=== PATIENT | male | born 1970 | race Caucasian/White ===

== ENCOUNTER 2017-01-11 08:15 | Inpatient (IN) | payer BC ==
[2017-01-11] MEDS: ATORVASTATIN CALCIUM 40 MG TAB PO SCH (20:05)
[2017-01-12 07:52] LABS: % IMMATURE GRANULYOCYTES 0.5 % (0.0-1.1); ABSOLUTE IMMATURE GRANULOCYTES 0.04 10^3/uL (0.00-0.10); ADD DIFF? NO; ADD MORPH? NO; ADD SCAN? NO; ATYPICAL LYMPHOCYTE FLAG 30 (0-99); FRAGMENT RBC FLAG 0 (0-99); HEMATOCRIT 39.3 % (40.0-51.0); LEFT SHIFT FLG 0 (0-99); LIPEMIA HEMOLYSIS FLAG 90 (0-99); MEAN CELL HEMOGLOBIN 33.1 pg (27.9-34.1); MEAN CELL HEMOGLOBIN CONCENTR. 35.6 g/dL (32.4-36.7); MEAN CELL VOLUME 92.9 fL (81.5-99.8); PLATELET CLUMPS FLAG 30 (0-99); PLATELET COUNT 350 10^3/uL (150-400); RED BLOOD CELL COUNT 4.23 10^6/uL (4.40-6.38); RED CELL DISTRIBUTION WIDTH 12.6 % (11.5-15.2)
[2017-01-12 08:16] LABS: ALANINE AMINOTRANSFERASE 119 IU/L (21-72); ALBUMIN 3.6 g/dL (3.5-5.0); ALKALINE PHOSPHATASE 70 IU/L (38-126); ANION GAP 11 mEq/L (8-16); ASPARTATE AMINOTRANSFERASE 56 IU/L (17-59); BILIRUBIN,TOTAL 1.1 mg/dL (0.1-1.4); CALCIUM 9.1 mg/dL (8.5-10.4); CARBON DIOXIDE 25 mEq/l (22-31); CHLORIDE 105 mEq/L (97-110); CREATININE 0.8 mg/dL (0.7-1.3); GLOMERULAR FILTRATION RATE > 60; GLUCOSE 86 mg/dL (70-100); SODIUM 141 mEq/L (134-144); TOTAL PROTEIN 6.5 g/dL (6.3-8.2)
[2017-01-12] MEDS: METOPROLOL SUCCINATE XR 50 MG TAB PO SCH (08:35)
[2017-01-12] MEDS: CLOPIDOGREL BISULFATE 75 MG TAB PO SCH (08:35)
[2017-01-12] MEDS: LISINOPRIL 10 MG TAB PO SCH (08:35)
[2017-01-12] MEDS: ASPIRIN EC 81 MG TAB PO SCH (08:35)
[2017-01-12] MEDS ORDERED: ACETAMINOPHEN 650 MG/20.3 ML UDCUP PO PRN (11:46)
--- NOTE | 2017-01-12 11:50 | PDOREHIP ---
Admission [facility] - Admission - 3 Day Assessment Period Admission Date/Day 1: 01/11/17 Day 2: 01/12/17 Day 3: 01/13/17 - Active Diagnoses Comorbidities and Co-existing Conditions at Admission: 25602. None of the Above - Skin Conditions Unhealed Pressure Ulcer (1 or more/Stage 1 or >)-Admission: 0. No
[2017-01-12] MEDS ORDERED: ACETAMINOPHEN 325 MG TAB PO PRN (11:58)
--- NOTE | 2017-01-12 12:49 | GHP ---
[f rep st] HISTORY AND PHYSICAL POST ADMISSION PHYSICIAN EVALUATION AND REHABILITATION TREATMENT PLAN DATE OF ADMISSION: 01/11/2017 DATE OF EVALUATION: 01/12/2017 TIME OF EVALUATION: 1115 REFERRING FACILITY: [facility]. REFERRING PHYSICIAN: Dr. Cuevas IMPAIRMENT GROUP: 2.1. DATE OF ONSET: 01/03/2017 CONSULTING PHYSICIAN: He had consultation with logging equipment mechanic, Dr. Seth Lopez. REHABLITATION DIAGNOSIS: Debility, status post cardiac arrest with possible hypoxic ischemic encephalopathy. ETIOLOGIC DIAGNOSIS: Nontraumatic brain dysfunction. HISTORY OF PRESENT ILLNESS: This patient had cardiac arrest at approximately 2 a.m. on 01/03/2017. His awakened, noting abnormal breathing, called 911 and initiated CPR. When paramedics arrived, he was found to be in ventricular fibrillation. He received epinephrine and shocks x3 and returned to normal sinus rhythm. He was intubated immediately upon arrival to the emergency department. EKG did not show ischemia; however, he had elevated troponin. He had eventual cardiac catheterization, which found a complete blockage of the left anterior descending artery and atherosclerotic disease in other arteries as well. The left anterior descending artery was stented. He required an intra -aortic balloon pump, as he was in cardiogenic shock. Initial evaluation showed ejection fraction of 20%, which subsequently improved to 45% as his cardiac function recovered. He required fluids, as well as diuresis. He was extubated after 3 days. He had agitation but ultimately was participating in therapies, medically stabilized and ready for inpatient rehabilitation. STUDIES AND LABS IN THE HOSPITAL: He had elevated hepatic transaminases likely due to cardiogenic shock. Imaging revealed left rib fractures #4 to 7, as well as fatty liver. Otherwise, labs were overall unremarkable. PRECAUTIONS: He is a fall risk. ACTIVE COMORBIDITIES: He has the tier 3 comorbidity of morbid obesity. Otherwise, he has no active tier 1, tier 2, or tier 3 comorbidities. PAST MEDICAL HISTORY: 1. Hypertension. 2. Dyslipidemia. PAST SURGICAL HISTORY: He has had no surgeries. PRE-HOSPITAL MEDICATIONS: He was being treated for hypertension and dyslipidemia; however, he was not consistent with taking medications. ADMISSION MEDICATIONS: 1. Aspirin 81 mg p.o. daily. 2. Atorvastatin 80 mg p.o. at bedtime. 3. Clopidogrel 75 mg p.o. daily. 4. Lisinopril 10 mg p.o. daily. 5. Metoprolol-XL 50 mg p.o. daily. ALLERGIES: There are no known drug allergies. FAMILY HISTORY: There is extensive cardiovascular family history. His father of a heart attack at age 50. His father was also an alcoholic. PSYCHOSOCIAL HISTORY: He is . He lives with his . They have 7 children. 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 He is a nonsmoker. He has a history of regular alcohol consumption, but he has discontinued drinking. REVIEW OF SYSTEMS: He has left thoracic pain when he lies on it. Otherwise, he is not in pain. He denies cough or dyspnea. He has no palpitations or chest pain. He is not aware of neurologic changes, including no vision changes. No headache. No difficulty swallowing. No numbness, weakness, or tingling of the extremities. He reports that he snores at night, but other than the events of January 03, he is not aware that his has noted any abnormal breathing at night. He denies fevers or chills. He has a fair appetite. He denies nausea, vomiting, constipation, or diarrhea. No abdominal pain. He denies dysuria or urinary frequency. He denies joint pain or joint swelling. He denies skin rash or skin breakdown. Otherwise, a 10-point review of systems is negative. PHYSICAL EXAMINATION: VITAL SIGNS: Blood pressure is 116/85, heart rate is 92 , respiratory rate is 17, oxygen saturation is 92% on room air, temperature is 36.6 degrees centigrade. His weight is 122.3 kg for a body mass index of 37.6. GENERAL: This is an obese man, sitting up in a chair, dressed in street clothes, cooperative and in no acute distress. HEENT: Extraocular movements are intact. Pupils are equal, round, and reactive to light. He has bilateral subconjunctival hemorrhage on the lateral aspects of each eye. Mucous membranes are moist. Dentition is in good condition. There is no posterior oropharyngeal mucus. There are no oropharyngeal mucosal abnormalities. He has a mildly crowded airway, Mallampati class 2. NECK: Supple. HEART: There is a regular rate and rhythm with no murmurs, rubs, or gallops. LUNGS: Clear to auscultation bilaterally. ABDOMEN: Soft, nontender, nondistended with normoactive bowel sounds and no hepatosplenomegaly. EXTREMITIES: There is no cyanosis, clubbing, or edema. Radial and dorsalis pedis pulses are 2+ bilaterally. NEUROLOGIC: He is alert and oriented x3. Cranial nerves 2-12 are grossly intact. There is no focal weakness. Sensation is intact to light touch. Deep tendon reflexes are 2+ bilaterally at the biceps, patella, and Achilles tendons. Plantar reflex is mildly upgoing bilaterally. CURRENT LEVEL OF FUNCTION PER THE PRE-ADMISSION SCREEN: regarding diet, feeding , and swallowing, he was on a regular texture diet with thin liquids. Toileting required contact guard to minimal assist. Bed mobility required minimal to moderate assist. Transfers required contact guard to minimal assist. He used a front-wheeled walker. Balance, seated required standby assistance. Standing required contact guard within his base of support, and minimal assist when he was outside of his base of support. He had delayed balance reactions. His endurance was poor to fair. Regarding gait, he pushed the wheelchair with 3 L of oxygen but with no other assistive device. He had a wide base of support, decreased stride length, and required minimal assist for 15 feet. His righting reactions and balance deteriorated with dual tasks or distractions. Regarding communication, he was noted to have garbled speech, but this has improved. Regarding cognition, he was noted to have impaired attention, memory, executive function and problem solving. IMPRESSION: This patient is a 46-year-old man with a significant family history of coronary artery disease, as well as dyslipidemia, hypertension and poor compliance with medications. He suffered a ventricular fibrillation cardiac arrest on 01/03/2017. He received CPR at home, and then he was shocked in the field with return of spontaneous circulation. He was intubated for approximately 3 days and required an intra-aortic balloon pump. Cardiac catheterization revealed a left anterior descending 100% occlusion, which was stented, as well as atherosclerosis in other vessels. He had cardiogenic shock initially but has recovered cardiac function to an ejection fraction of 45%. He was treated with heparin initially and then started on aspirin and atorvastatin. He was treated with lisinopril and metoprolol for hypertension, as well as congestive heart failure and he received diuresis in the hospital. He denies a prior diagnosis of sleep apnea but has a CPAP machine which was given to him at the hospital and has been brought to inpatient rehabilitation for him to continue. He has deficits to mobility and activities of daily living and had documented cognitive impairment at the hospital. He is appropriate for inpatient rehabilitation where he will benefit from PT and OT to optimize mobility and activities of daily living, as well as speech and language pathology for assessment and treatment of cognitive function. He needs nursing care for medication administration, bowel and bladder, fall risk, skin integrity, and medication education. He needs the care of a physician for blood pressure and cardiorespiratory status. His goal is to complete a rehabilitation stay and then return home with his family and home health care, as well as any durable medical equipment that he might require. For a safe discharge, it is anticipated that he will achieve modified independence to independence with ADLs and functional activities. It is likely he will require assistance for household management and shopping, and he may need 24 hour supervision pending progress with cognitive impairments. He will have therapy with physical therapy, occupational therapy, and speech and language pathology for 60 minutes per day for each discipline on 5-7 days of the week. His expected duration of stay is 7-10 days. It is anticipated that upon discharge, he will continue to benefit from home health services including speech and language pathology, occupational therapy, physical therapy, and possibly a brain injury support group. PLAN: 1. Hypoxic ischemic encephalopathy. He appears to have had improvement since this was first noted in the hospital. Assessment and treatment per Speech and Language Pathology. 2. Deficits to mobility and activities of daily living to be assessed and treated per Physical Therapy and Occupational Therapy. 3. Coronary artery disease, status post VFib arrest, myocardial infarction and stenting of a 100% LAD lesion. Continue aspirin, as well as clopidogrel. Continue management of hypertension with lisinopril and metoprolol. Continue management of dyslipidemia with atorvastatin. 4. Steatohepatitis and obesity. He will have a consult with the dietitian. 5. Congestive heart failure with reduced ejection fraction. He may benefit from cardiac rehabilitation once he completes his functional and cognitive rehabilitation. 6. Rib pain. Will prescribe acetaminophen on an as-needed basis. 7. Question of obstructive sleep apnea. He has been provided a CPAP machine from the hospital. He is advised to have a formal sleep study done after discharge from inpatient rehabilitation. 8. Conjunctival hemorrhage, likely due to anticoagulation, as well as CPR. Observe for resolution. Consider referral to Ophthalmology after discharge. 9. Prophylaxis. Other than obesity and recent hospitalization, he is not at elevated risk for DVT. He is on dual anti-platelet therapy. Continue SCDs at night. Assess for mobility. If his mobility is adequate, we will not prescribe any further anticoagulation. /[id number]/MODL MTDD
[2017-01-12] MEDS: ATORVASTATIN CALCIUM 40 MG TAB PO SCH (20:04)
[2017-01-13] MEDS: ASPIRIN EC 81 MG TAB PO SCH (09:53)
[2017-01-13] MEDS: LISINOPRIL 10 MG TAB PO SCH (09:53)
[2017-01-13] MEDS: CLOPIDOGREL BISULFATE 75 MG TAB PO SCH (09:53)
[2017-01-13] MEDS: METOPROLOL SUCCINATE XR 50 MG TAB PO SCH (09:54)
--- NOTE | 2017-01-13 12:39 | SOAPPROG ---
SOAP Progress Note Assessment/Plan: Assessment: 1. Hypoxic ischemic encephalopathy. He appears to have had improvement since this was first noted in the hospital. Speech and Language Pathology, has moderate deficits to memory, attention, executive functions, and problem solving skills. 2. Deficits to mobility and activities of daily living, per Physical Therapy and Occupational Therapy, have largely resolved. Lezama balance inventory 54/56.. 3. Coronary artery disease, status post VFib arrest, myocardial infarction and stenting of a 100% LAD lesion. Continue aspirin, as well as clopidogrel. Continue management of hypertension with lisinopril and metoprolol. Continue management of dyslipidemia with atorvastatin. 4. Steatohepatitis and obesity. He will have a consult with the dietitian. 5. Congestive heart failure with reduced ejection fraction. Plan for cardiac rehabilitation once he completes his functional and cognitive rehabilitation. 6. Rib pain. Will prescribe acetaminophen on an as-needed basis. 7. Question of obstructive sleep apnea. He has been provided a CPAP machine from the hospital. He is advised to have a formal sleep study done after discharge from inpatient rehabilitation. Will do overnight oximetry tonight 01/13/2017. 8. Conjunctival hemorrhage, likely due to anticoagulation, as well as CPR. Observe for resolution. Consider referral to Ophthalmology after discharge. 9. Prophylaxis. Other than obesity and recent hospitalization, he is not at elevated risk for DVT. He is on dual anti-platelet therapy. Adequate mobility ; no need for pharmacologic anticoagulation. Continue SCDs at night. 01/13/17 12:36 Objective: Vital Signs Temp Pulse Resp BP Pulse Ox 36.6 C 117 H 14 115/73 93 01/13/17 07:42 01/13/17 10:29 01/13/17 07:42 01/13/17 09:54 01/13/17 10:29 Laboratory Results 01/12/17 06:25 01/12/17 06:25 01/12/17 01/13/17 01/14/17 05:59 05:59 05:59 Intake Total 450 440 120 Output Total 0 Balance 450 440 120 Physical Exam - Physical Exam General Appearance: WD/WN, alert, no apparent distress, obese Respiratory: normal breath sounds, No crackles, No rhonchi, No wheezing Cardiac/Chest: regular rate, rhythm, edema (2+ B pretibial) Skin: normal color, warm/dry Neuro/Psych: no motor/sensory deficits, alert, normal mood/affect, oriented x 3 ICD10 Worksheet Patient Problems: Problems Problem Status Onset Hypoxic ischemic encephalopathy Acute
[2017-01-13 18:42] VITALS: RESP 16
[2017-01-13] MEDS: ATORVASTATIN CALCIUM 40 MG TAB PO SCH (21:08)
[2017-01-14] MEDS: LISINOPRIL 10 MG TAB PO SCH (08:43)
[2017-01-14] MEDS: ASPIRIN EC 81 MG TAB PO SCH (08:43)
[2017-01-14] MEDS: METOPROLOL SUCCINATE XR 50 MG TAB PO SCH (08:43)
[2017-01-14] MEDS: CLOPIDOGREL BISULFATE 75 MG TAB PO SCH (08:43)
[2017-01-14 08:45] VITALS: BP 112/75; PULSE 85
[2017-01-14 08:46] VITALS: TEMP 98.9; O2SAT 93
--- NOTE | 2017-01-14 13:46 | SOAPPROG ---
SOAP Progress Note Assessment/Plan: Assessment: # Hypoxic ischemic encephalopathy. He appears to have had improvement since this was first noted in the hospital. * Has moderate deficits to memory, attention, executive functions, and problem solving skills. * Unlikely to be able to return to work soon. # Deficits to mobility and activities of daily living * Lezama balance inventory 54/56. * Has met all goals per PT and OT. # Coronary artery disease, status post VFib arrest, myocardial infarction and stenting of a 100% LAD lesion. Continue aspirin, as well as clopidogrel. Continue management of hypertension with lisinopril and metoprolol. Continue management of dyslipidemia with atorvastatin. # Steatohepatitis and obesity. Has had consult with the dietitian, who reports that he had or D lost some weight by abstaining from sweets prior to his myocardial infarction. #Congestive heart failure with reduced ejection fraction. Plan for cardiac rehabilitation once he completes his functional and cognitive rehabilitation. # Rib pain. Likely due to chest compressions. Has not been using acetaminophen. # Question of obstructive sleep apnea. * He has been provided a CPAP machine from the hospital. * Overnight oximetry 01/13/2017-01/14/2017 showed oxygenation less than 85% 434 min with over 500 episodes. This was done without CPAP. * He is advised to have a formal sleep study done after discharge from inpatient rehabilitation. # Conjunctival hemorrhage, likely due to anticoagulation, as well as CPR. Observe for resolution. Consider referral to Ophthalmology after discharge. # Prophylaxis. Other than obesity and recent hospitalization, he is not at elevated risk for DVT. He is on dual anti-platelet therapy. Adequate mobility ; no need for pharmacologic anticoagulation. Continue SCDs at night. Attended staffing, 15 min. Discussed with case management, dietitian, nursing, PT, OT, TONSORIAL ARTIST. Had neurologic education with case reviewer and TONSORIAL ARTIST. Plan for discharge home today with assistance by . He will have outpatient TONSORIAL ARTIST beginning 01/24/2017. He will have outpatient OT regarding decision to return to work. He is advised to have a pre driving screen pr OT prior to driving. He is advised to have a sleep study for definitive diagnosis of nocturnal hypoxemia. He will be discharged with nocturnal oxygen ordered to be used concurrent with CPAP until he has a sleep study. 01/14/17 13:38 Subjective: No complaints this morning. Slept well. Not in pain. No cough or dyspnea. Objective: Vital Signs Temp Pulse Resp BP Pulse Ox 37.2 C 85 16 112/75 93 01/14/17 08:00 01/14/17 08:43 01/14/17 08:00 01/14/17 08:43 01/14/17 08:00 Laboratory Results 01/12/17 06:25 01/12/17 06:25 01/13/17 01/14/17 01/15/17 05:59 05:59 05:59 Intake Total 440 420 240 Balance 440 420 240 - Time Spent With Patient Time Spent With Patient: Greater than 35 min floor time today, including more than 50% of time in coordination of care during staffing meeting, and counseling patient and . Physical Exam - Physical Exam General Appearance: WD/WN, alert, no apparent distress Respiratory: normal breath sounds, No crackles, No rhonchi, No wheezing Cardiac/Chest: regular rate, rhythm, edema (1+ bilaterally pretibial.), No diastolic murmur, No systolic murmur Skin: normal color, warm/dry Neuro/Psych: no motor/sensory deficits, alert, normal mood/affect, oriented x 3 ICD10 Worksheet Patient Problems: Problems Problem Status Onset Hypoxic ischemic encephalopathy Acute
--- NOTE | 2017-01-14 18:00 | GDS ---
[f rep st] DISCHARGE SUMMARY ADMITTING DIAGNOSIS: Hypoxic ischemic encephalopathy following myocardial infarction and ventricular fibrillation cardiac arrest. DISCHARGE DIAGNOSIS: Hypoxic ischemic encephalopathy following myocardial infarction and ventricular fibrillation cardiac arrest. OTHER DISCHARGE DIAGNOSES: 1. Coronary artery disease. 2. Congestive heart failure. 3. Steatohepatitis and obesity. 4. Possible obstructive sleep apnea. CONSULTATIONS: There were none. PROCEDURES: There was an overnight oximetry study done. COMPLICATIONS: There were none. HISTORY AND HOSPITAL COURSE: This patient was admitted from [facility] where he had presented on 01/03/2017. His had noted severely abnormal breathing at night, called 911 and then began chest compressions. When EMS arrived, he was found to be in ventricular fibrillation and had return of normal circulation after 3 shocks and treatment with epinephrine. In the hospital, he had an elevated troponin. He had cardiac catheterization, which found a complete blockage of the left anterior descending artery which was stented. He required an intra-aortic balloon pump for cardiogenic shock. His ejection fraction improved during his stay from 20% to 45%. He required fluids as well as diuresis. He was extubated after 3 days. There was agitation, but ultimately he was participating in therapy. He had rapid improvement in rehabilitation and was soon independent with ambulation and activities of daily living. His functional independence measure on the day of discharge was 108, which is consistent with independent function. However, he continued to have significant cognitive deficits including impairment to executive function, repair skills, alternating attention, and new learning. These deficits were worse with fatigue and he had reduced insight into his deficits. He had visual testing per Occupational Therapy and was noted to have a visual perceptual deficit, with difficulty distinguishing figure from ground and other problems which were worse with fatigue. He was discharged from the hospital with a CPAP machine. Overnight oximetry was done with the goal of assessing the adequacy of the CPAP. However, inadvertently, this study was done without the CPAP being in place. He had 34 minutes of saturations below 84% through the night. Other labs and studies during his stay: CBC on 01/12/2017, showed very mild anemia with hematocrit of 39.3, and otherwise was overall within normal limits. Serum chemistry showed a slightly elevated ALT at 119, otherwise, renal function and electrolytes were within normal limits. He had shock liver on lab tests from the hospital. CONDITION UPON DISCHARGE: Good. ACTIVITY: Ad mahamed, but he should have assistance with critical cognitive tasks such as medication management and bill paying. DIET: Cardiac. DATE OF NEXT APPOINTMENT: He has followups scheduled with elementary substitute teacher, Dr. Goldsmith, on 01/27/2017; with primary care provider, Dr. Vonda Neely on 01/2017; and he will follow up for cardiac rehabilitation at [facility]. MEDICATIONS AT DISCHARGE: 1. Aspirin 81 mg p.o. daily. 2. Metoprolol-XL 50 mg p.o. daily. 3. Lisinopril 10 mg p.o. daily. 4. Clopidogrel 75 mg p.o. daily. 5. Atorvastatin 80 mg p.o. at bedtime. 6. Acetaminophen 650 mg p.o. q.4 hours p.r.n. ISSUES TO BE ADDRESSED AT FOLLOWUP: 1. Coronary artery disease. Continue secondary prophylaxis with blood pressure control, lipid control, aspirin and clopidogrel, and follow up with elementary substitute teacher, Dr. Goldsmith. 2. Congestive heart failure. Follow up with Dr. Goldsmith and with Cardiac Rehabilitation. 3. Cognitive impairment. He will have outpatient Speech and Language Pathology , but not until 01/24/2017, which was the 1st available appointment. 4. Visual deficits. He is advised to have an OT pre-driving screen before considering driving, and he is advised to have outpatient Occupational Therapy along with Speech and Language Pathology evaluations regarding return to work. 5. Possible obstructive sleep apnea. He is going home with the CPAP machine which was issued to him at [facility], and he is advised to have an outpatient polysomnographic sleep study to evaluate for the etiology of nocturnal hypoxemia and efficacy of CPAP for treatment. 6. Steatohepatitis was seen on imaging at the hospital as well as obesity. He was already attempting to lose weight before he had the myocardial infarction. He met with a dietitian and he is encouraged to continue efforts at weight loss. He can follow up with his primary care physician. Copy requested to: MD Jeremy Samuel MD /[id number]/MODL MTDD
== END 2017-01-14 15:55 | disposition home or self-care (01) | DRG 91 ==
LOC: BREH 17:35
PROVIDERS: ADMIT Internal Medicine; ATTEND Internal Medicine
PROC: F0636ZZ Communicative/Cognitive Integration Skills Treatment of Neurological System - Whole Body (ICD-10-PCS; principal; 2017-01-11)
PROC: F08Z7ZZ Vocational Activities and Functional Community or Work Reintegration Skills Treatment (ICD-10-PCS; principal; 2017-01-11)
PROC: F07M3ZZ Motor Function Treatment of Musculoskeletal System - Whole Body (ICD-10-PCS; principal; 2017-01-11)
DX: G93.1 Anoxic brain damage, not elsewhere classified (principal); Z86.74 Personal history of sudden cardiac arrest; I25.10 Atherosclerotic heart disease of native coronary artery without angina pectoris; I21.9 Acute myocardial infarction, unspecified; I50.9 Heart failure, unspecified; Z95.5 Presence of coronary angioplasty implant and graft; Z79.82 Long term (current) use of aspirin; S22.42XD Multiple fractures of ribs, left side, subsequent encounter for fracture with routine healing; H11.33 Conjunctival hemorrhage, bilateral; I10 Essential (primary) hypertension; E78.5 Hyperlipidemia, unspecified; E66.01 Morbid (severe) obesity due to excess calories; Z68.37 Body mass index [BMI] 37.0-37.9, adult; G47.33 Obstructive sleep apnea (adult) (pediatric); K75.81 Nonalcoholic steatohepatitis (NASH)
CPT/HCPCS: 92507-GN; 92522-GN; 97112-GP; 97161-GP; 97166-GO; 97530-GO; 97530-GP; 97532-GO; 97535-GO